=== PATIENT | male | born 1950 | race Caucasian/White ===

== ENCOUNTER → 2017-01-11 | Outpatient (CLI) | payer BC ==
[~2017-01-11] MED LIST: ACYC1CAP8; AGM875 PO; AMX500; SIMV40TA2
[2017-01-11 09:26] LABS: BASO % 0.5 %; BASO ABS # 0.03 K/uL (0-0.2); COMPLETE YES; EOS % 1.5 %; HEMATOCRIT 42.1 % (42-52); IG% 0.2 %; LYMPH % 26.1 %; MEAN CELL VOLUME 84.5 fL (80-100); MEAN CORPUSCULAR HEMOGLOBIN 29.7 pg (25-34); MEAN CORPUSCULAR HGB CONC 35.2 g/dl (32-36); MEAN PLATELET VOLUME 9.6 fL (7.4-10.4); MONO % 9.4 %; NEUT % 62.3 %; PLATELET COUNT 209 K/uL (130-400); RED BLOOD COUNT 4.98 M/uL (4.7-6.1); WHITE BLOOD COUNT 6.51 K/uL (4.8-10.8)
[2017-01-11 09:37] LABS: ALT/SGPT 42 U/L (12-78); AST/SGOT 29 U/L (15-37); BLOOD UREA NITROGEN 30 mg/dl (7-18); BUN/CREATININE RATIO 24.8 (10-20); CALCIUM 9.5 mg/dl (8.5-10.1); CARBON DIOXIDE 27 mmol/L (21-32); CHLORIDE 101 mmol/L (98-107); CHOLESTEROL 149 mg/dl (0-200); GLUCOSE 105 mg/dl (70-99); POTASSIUM 3.8 mmol/L (3.5-5.1); SODIUM 139 mmol/L (136-145); URIC ACID 7.4 mg/dl (2.6-7.2)
[2017-01-11 09:45] LABS: URINE APPEARANCE CLEAR (CLEAR); URINE BILIRUBIN NEG (NEG); URINE COLOR YELLOW; URINE EPITHELIAL CELL AUTO 0-5 /lpf (0-5); URINE NITRITE NEG (NEG); URINE PH 5.5 (4.5-7.5); URINE SPECIFIC GRAVITY 1.015 (1.000-1.030); UROBILINOGEN NEG (NEG)
[2017-01-11 09:47] LABS: CHOLESTEROL/HDL RATIO 3.4; HDL CHOLESTEROL 44 mg/dl; LDL CHOLESTEROL CALCULATED 76 mg/dl; MANUAL MICROSCOPIC REQUIRED? NO; REVIEW REQ? YES; TRIGLYCERIDES 144 mg/dl (0-150); VERY LOW DENSITY LIPOPROT CALC 29 mg/dl
[2017-01-11 09:48] LABS: ESTIMATED AVERAGE GLUCOSE 111 mg/dl; HA1C FLAG Normal (Normal)
--- NOTE | 2017-01-15 11:11 | CODING QUERY MEDICAL NECESSITY ---
SUPPORTING DIAGNOSIS NEEDED Dr. Grayson, A supporting diagnosis is required for the test/procedure performed on this patient in order for us to be reimbursed by the patient's insurance. Please provide a supporting diagnosis for the following test/procedure listed below next to the test name along with your signature. *If there is no additional diagnosis for this patient that would support the following test/procedure please document that below next to the test/procedure. Test(s)/Procedure(s) that require a supporting diagnosis: * [id number] GLYCATED HEMOGLOBIN DIAGNOSIS: * [id number] PSA DIAGNOSIS: DATE OF SERVICE: 01/11/17 Provider Signature: Date: Thank you Kenyon [facility] Once completed, please kindly fax back to [phone] For questions please call [phone]
== END | disposition home or self-care (01) ==
LOC: C.LAB1850 08:04
PROVIDERS: ATTEND Internal Medicine
DX: E78.00 Pure hypercholesterolemia, unspecified (principal); Z12.5 Encounter for screening for malignant neoplasm of prostate

== ENCOUNTER → 2017-07-08 | Outpatient (CLI) | payer BC ==
[2017-07-08 09:47] LABS: BASO % 0.4 %; BASO ABS # 0.03 K/uL (0-0.2); COMPLETE YES; EOS % 3.2 %; HEMATOCRIT 44.8 % (42-52); IG% 0.3 %; LYMPH % 27.1 %; LYMPH ABS # 1.84 K/uL (1.2-3.4); MEAN CORPUSCULAR HEMOGLOBIN 29.5 pg (25-34); MEAN CORPUSCULAR HGB CONC 33.9 g/dl (32-36); MONO % 7.9 %; NEUT % 61.1 %; PLATELET COUNT 252 K/uL (130-400); RED BLOOD COUNT 5.15 M/uL (4.7-6.1)
[2017-07-08 09:58] LABS: URINE APPEARANCE CLEAR (CLEAR); URINE BILIRUBIN NEG (NEG); URINE COLOR YELLOW; URINE EPITHELIAL CELL AUTO 0-5 /lpf (0-5); URINE NITRITE NEG (NEG); URINE PH 5.5 (4.5-7.5); URINE SPECIFIC GRAVITY 1.015 (1.000-1.030); UROBILINOGEN NEG (NEG)
[2017-07-08 10:02] LABS: MANUAL MICROSCOPIC REQUIRED? NO; REVIEW REQ? NO
[2017-07-08 10:14] LABS: ESTIMATED AVERAGE GLUCOSE 117 mg/dl; HA1C FLAG Normal (Normal)
[2017-07-08 10:15] LABS: ALT/SGPT 49 U/L (12-78); AST/SGOT 30 U/L (15-37); BLOOD UREA NITROGEN 28 mg/dl (7-18); BUN/CREATININE RATIO 23.7 (10-20); CALCIUM 9.3 mg/dl (8.5-10.1); CARBON DIOXIDE 32 mmol/L (21-32); CHLORIDE 103 mmol/L (98-107); GLUCOSE 95 mg/dl (70-99); POTASSIUM 3.7 mmol/L (3.5-5.1); SODIUM 140 mmol/L (136-145)
[2017-07-08 10:26] LABS: CHOLESTEROL 136 mg/dl (0-200); CHOLESTEROL/HDL RATIO 3.6; HDL CHOLESTEROL 38 mg/dl; LDL CHOLESTEROL CALCULATED 60 mg/dl; TRIGLYCERIDES 192 mg/dl (0-150); VERY LOW DENSITY LIPOPROT CALC 38 mg/dl
--- NOTE | 2017-07-18 11:15 | CODING QUERY MEDICAL NECESSITY ---
SUPPORTING DIAGNOSIS NEEDED A supporting diagnosis is required for the test/procedure performed on this patient in order for us to be reimbursed by the patient's insurance. Please provide a supporting diagnosis for the following test/procedure listed below next to the test name along with your signature. *If there is no additional diagnosis for this patient that would support the following test/procedure please document that below next to the test/procedure. Test(s)/Procedure(s) that require a supporting diagnosis: * HEMOGLOBIN A1C DIAGNOSIS: * PSA DIAGNOSIS: Provider Signature: Date: Thank you Aiyana Jones [facility] Once completed, please kindly fax back to [phone] For questions please call [phone]
== END | disposition home or self-care (01) ==
LOC: C.LAB1850 08:05
PROVIDERS: ATTEND Internal Medicine
DX: E78.00 Pure hypercholesterolemia, unspecified (principal)

== ENCOUNTER → 2018-02-21 | Outpatient (CLI) | payer BC ==
[~2018-02-21] MED LIST changes: +ACYC-57; -ACYC1CAP8
[2018-02-21 09:36] LABS: BASO % 0.3 %; BASO ABS # 0.02 K/uL (0-0.2); EOS % 2.1 %; EOS ABS # 0.13 K/uL (0-0.5); HEMATOCRIT 43.5 % (42-52); HEMOGLOBIN 15.5 g/dL (14.0-18.0); LYMPH % 24.6 %; LYMPH ABS # 1.53 K/uL (1.2-3.4); MEAN CELL VOLUME 84.3 fL (80-100); MEAN CORPUSCULAR HGB CONC 35.6 g/dl (32-36); MEAN PLATELET VOLUME 9.6 fL (7.4-10.4); MONO % 9.8 %; MONO ABS # 0.61 K/uL (0.11-0.59); NEUT % 63.2 %; NEUT ABS # 3.94 K/uL (1.4-6.5); PLATELET COUNT 207 K/uL (130-400); RED CELL DISTRIBUTION WIDTH CV 13.2 % (11.5-14.5); RED CELL DISTRIBUTION WIDTH SD 39.6 fL (36.4-46.3); WHITE BLOOD COUNT 6.23 K/uL (4.8-10.8)
[2018-02-21 09:47] LABS: HEMOGLOBIN A1C 5.7 % (4.5-5.6)
[2018-02-21 09:54] LABS: ALT/SGPT 54 U/L (12-78); AST/SGOT 36 U/L (15-37); BLOOD UREA NITROGEN 27 mg/dl (7-18); CALCIUM 9.7 mg/dl (8.5-10.1); CARBON DIOXIDE 33 mmol/L (21-32); CHOLESTEROL 164 mg/dl (0-200); CREATININE 1.28 mg/dl (0.60-1.40); GLUCOSE 108 mg/dl (70-99); POTASSIUM 3.5 mmol/L (3.5-5.1); SODIUM 139 mmol/L (136-145)
[2018-02-21 09:55] LABS: LDL CHOLESTEROL CALCULATED 76 mg/dl
== END | disposition home or self-care (01) ==
LOC: C.LAB1850 07:51
PROVIDERS: ATTEND Internal Medicine
DX: E78.00 Pure hypercholesterolemia, unspecified (principal)

== ENCOUNTER 2023-04-02 22:50 | Inpatient (IN) ==
[2023-04-02] MEDS ORDERED: OPTIRAY 320 500ml IV ONE (23:05)
--- NOTE | 2023-04-02 23:25 | Emergency Department Note ---
Impression & Plan Brain TIA ED Provider Note Provider: Blair Kirkland MD DATE OF SERVICE: 04/02/2023 CHIEF COMPLAINT: Speech issue and facial droop transient HISTORY OF PRESENT ILLNESS: Patient is a 73-year-old gentleman history of back surgery and GERD as well as hypertension presenting here today brought by his from home with a transient episode of slurred speech as well as left-sided facial droop and eye weakness that occurred between about 9:35 PM this evening till about 10 PM. Patient was evidently on the phone and started have slurred speech. The phone call or contact another friends and family who alerted the patient's went to check on him. He was evidently in a recliner talking and he states he is thinks he may have just fallen asleep some but was having significant left-sided facial droop at that time upon her arrival as well as difficulty opening his left eye and was having slurred speech. This lasted for about 20 to 25 minutes but has resolved by the time of arrival. Did stumble a bit getting out of the car to get any here however. Took an extra 81 mg aspirin prior to arrival but takes this daily. No history of CVA. History of heart issues in the family reported. Patient denies history of stroke. Denies other numbness or weakness in the extremities. Denies difficulty with speech at this time and the states he appears back to baseline. Did have bourbon or 2 after dinner but this is not atypical for him. PAST MEDICAL HISTORY: As noted above MEDICATIONS: Reviewed home medications FMH: Cardiac history SOCIAL HISTORY: PHYSICAL EXAM: GENERAL: alert and oriented in no acute distress on stretcher Head: normocephalic and atraumatic EYES: No injection, discharge or icterus. PERRL, EOMI. NECK: Trachea midline. Supple. ENT: Mucous membranes pink and moist. Pharynx without erythema or exudate. LUNGS: Airway patent. No retractions or tachypnea HEART: Regular rate and rhythm. No chest wall tenderness ABDOMEN: Soft and non-tender, without guarding or rebound. SKIN: Acyanotic, warm, dry, without rashes EXTREMITIES: Without swelling, tenderness or deformity NEUROLOGICAL: No focal deficits. No aphasia. No facial droop or slurred speech. Midline tongue. Good movement of the facial muscles at this time bilaterally and symmetric. No finger-nose ataxia normal strength and tone in the extremities. Sensation to gross touch normal. Ambulatory. EK bpm sinus rhythm with first-degree AV block. No PVC noted. Right bundle branch block left anterior fascicular block. No acute ST segment elevation with a QTc of 443. CONTINUOUS CARDIAC MONITORING: was ordered and showed a heart rate of 60s bpm in normal sinus rhythm occasional PVCs Patient's laboratory studies and imaging reviewed. Differential includes Infection, dehydration, metabolic abnormality, hypo/hyperglycemia, electrolyte disturbance, anemia, hypoxia, cardiac sources, intracerebral event, toxicologic, neurologic, as well as other pathologies. IMPRESSION/MEDICAL DECISION MAKING: Patient with some transient neurological symptoms with speech and left-sided facial droop now resolved. Do not see any neurological deficits at this point. Question if this could have represented TIA. Does not seem like seizure. Given his history of regular alcohol use do not feel that the transient symptoms that quickly improved seem consistent with an alcohol intoxication state. Discussed with him and his concerns for TIA. CT and CTAs ordered and completed. Basic blood work without anemia or leukocytosis. Doubt this represents Yousif's palsy given the resolution. No significant electrolyte abnormality or acute kidney injury noted on blood work. No signs of significant transaminitis. CT head per radiology without evidence of acute intracranial abnormality with some microvascular changes chronic. CTA of the head with focal stenosis at the A2 segment of the left anterior cerebral artery but no occlusion noted or other aneurysm per report. CTA of the neck without acute abnormality. Given a full dose aspirin here with findings of some stenosis although not severely distribution to explain his symptoms we will give a Plavix load at this time and defer further anticoagulation. Not indicative of any need for endovascular therapy or thrombolytics especially with resolution of his symptoms. Seems consistent with TIA. Discussed the patient and recommended further care here at the hospital. Hospitalist contacted. DIAGNOSIS: TIA DISPOSITION: Hospitalist will evaluate Patient was agreeable with this plan. Past Med/Surg History Medical History (Updated 04/03/23 @ 01:35 by Blair Kirkland M.D.) Anemia reports recent drop in hgb. (hgb 15 03/2019 --> hgb 12.6 09/2019) pcp monitoring. colonoscopy and egd pending Arthralgia of multiple sites BPH (benign prostatic hyperplasia) Carpal tunnel syndrome, left Cervical radiculopathy at C8 Chronic back pain Degenerative disc disease Erectile dysfunction GERD without esophagitis History of irregular heartbeat 15 YEARS AGO "I SKIPPED BEATS" - NO CURRENT ISSUES - DOES NOT FOLLOW W/ CARDIO [place] (hard of hearing) Lumbar back pain Neck pain with history of cervical spinal surgery NSAID induced gastritis 10/2019 Osteoarthritis RBBB (right bundle branch block with left anterior fascicular block) Spinal stenosis Surgical History History of carpal tunnel surgery of left wrist History of cervical spinal surgery History of colonoscopy History of shoulder surgery History of tonsillectomy and adenoidectomy Family History Father Multiple myeloma Myocardial infarction Grandmother (Paternal) Family history of diabetes mellitus Brother Family hx colonic polyps Family/Other Colorectal cancer Ovarian cancer Mother Myocardial infarction Other No family history of adverse response to anesthesia Denies family history of Prostate cancer Breast cancer Social History (Updated 12/31/22 @ 13:38 by TEGAN Plunkett) Smoking Status: Never smoker Tobacco Type: Cigarettes Cigarettes Per Day: QUIT 40 YEARS AGO; Second Hand Exposure: Yes; Do You Dip or Chew Tobacco: No; Hx Alcohol Use: Yes (Several times a month ) Alcohol type: hard liquor Hx Substance Use: No Preferred Language: Azeri Communication Ability: Effective Goring Cutter Required: No Beliefs That Will Affect Care: None marital status: Current Living Situation: Spouse current occupational status: employed current occupation: [employer] Feels Safe at Home: Yes Childhood Exposure to Second-Hand Smoke: Yes Dental Care, Regularly: Yes Physical Activity Frequency: 3-4 Times per Week Seatbelt Use: always Sunscreen Use: Yes Assistive Devices: None Allergies Allergies Allergy/AdvReac Type Severity Reaction Status Date / Time oxycodone Allergy Intermediate Rash Verified 04/02/23 23:25 tramadol Allergy Intermediate swelling Verified 04/02/23 23:25 terbinafine AdvReac Intermediate Diarrhea Verified 04/02/23 23:25 Home Meds Home Medications Medication Instructions Recorded Confirmed ascorbic acid (vitamin C) 1,000 mg 3,000 mg PO QPM 10/24/18 04/02/23 tablet (Vitamin C) [id number] 250 1 tab PO [id number] 04/02/23 04/02/23 mg-250 mg-65 mg tablet (Excedrin Migraine) pantoprazole 40 mg tablet,delayed 40 mg PO DAILY 04/02/23 04/02/23 release Previous Rx's Medication Instructions Recorded acyclovir 400 mg tablet 400 mg PO BID #180 tabs 04/25/21 amlodipine 5 mg-olmesartan 20 mg 0.5 tab PO DAILY #45 tabs 09/27/22 tablet rosuvastatin 40 mg tablet 40 mg PO DAILY #90 tabs 12/10/22 amitriptyline 50 mg tablet 25 mg PO QPM #45 tabs 12/31/22 Results & Data (ED) Vital Signs Vital Signs - 24 hr 04/02/23 22:52 04/02/23 23:15 04/03/23 01:04 Temperature 36.6 C Temperature Source Temporal Artery Scan Pulse Rate 68 65 Pulse Rate [Right Finger] 70 Pulse Rhythm Regular Pulse Rhythm [Right Finger] Regular Pulse Strength Normal Pulse Strength [Right Finger] Normal Respiratory Rate 17 18 Respiratory Effort / Characteristics Non-Labored Spontaneous Non-Labored Spontaneous Respiratory Depth Normal Normal Respiratory Pattern Regular Regular Blood Pressure 127/43 L Blood Pressure [Right Arm] 135/65 Blood Pressure Mean 71 Blood Pressure Mean [Right Arm] 88 Blood Pressure Position Sitting Blood Pressure Position [Right Arm] Lying Pulse Oximetry 97 93 Oxygen Delivery Method Room Air Room Air Sepsis Recent Fever Within 48 Hours No Sepsis New/Unexplained Change in Mental Status N/A Sepsis Action Taken by Nursing No Action Required Laboratory Data 04/02/23 23:12 04/02/23 23:12 Lab Results 04/02/23 04/02/23 04/02/23 Range/Units 23:12 23:12 23:12 WBC 5.54 (4.8-10.8) K/ul RBC 4.55 L (4.70-6.10) M/uL Hgb 14.5 (14.0-18.0) g/dl POC Hgb (14.0-18.0) g/dl Hct 40.2 L (42.0-52.0) % POC Hct (42-52) % MCV 88.4 (80.0-100.0) fL MCH 31.9 (25.0-34.0) pg MCHC 36.1 H (32.0-36.0) g/dL RDW Std Deviation 40.2 (36.4-46.3) fL RDW Coeff of Judy 12.5 (11.5-14.5) % Plt Count 193 (130-400) K/uL MPV 10.4 (9.4-12.4) fL Immature Gran % (Auto) 0.2 % Neut % (Auto) 53.4 % Lymph % (Auto) 33.0 % Sargent % (Auto) 9.6 % Eos % (Auto) 3.1 % Baso % (Auto) 0.7 % Neut # (Auto) 2.96 (1.40-6.50) K/uL Lymph # (Auto) 1.83 (1.2-3.4) K/uL Sargent # (Auto) 0.53 (0.11-0.59) K/uL Eos # (Auto) 0.17 (0-0.50) K/uL Baso # (Auto) 0.04 (0-0.2) K/uL Immature Gran # (Auto) 0.01 (0.01-0.20) K/uL PT 10.1 (9.0-12.0) Seconds INR 0.9 (0.9-1.1) APTT 30.7 (21.0-31.0) Seconds PTT Ratio 1.1 POC Sodium (135-144) mmol/L Sodium 139 (136-145) mmol/L POC Potassium (3.3-5.0) mmol/L Potassium 3.9 (3.5-5.1) mmol/L POC Chloride (101-112) mmol/L Chloride 104 (98-107) mmol/L Carbon Dioxide 28 (21-32) mmol/L POC Total CO2 (24-31) mmol/L Anion Gap 7 (3-11) POC Anion Gap (16-25) mmol/L POC BUN (7-18) mg/dl BUN 17 (6-23) mg/dl Creatinine 1.09 (0.6-1.4) mg/dl POC Creatinine (0.6-1.3) mg/dl Est Cr Clr Drug Dosing 69.3 ml/min Est GFR ( Amer) 77.6 ml/min Est GFR (Non-Af Amer) 67.0 ml/min BUN/Creatinine Ratio 15.6 (10-20) Glucose 100 H (70-99(Fasting)) mg/dl POC Glucose (other) (70-99) mg/dl Calcium 9.5 (8.6-10.3) mg/dl POC Ioniz Calcium Alla (1.12-1.32) mmol/l Magnesium 2.1 (1.7-2.4) mg/dl Total Bilirubin 0.3 (0.2-1.0) mg/dl AST 23 (13-39) U/L ALT 21 (7-52) U/L Alkaline Phosphatase 58 (34-104) U/L Troponin I High Sens 8.4 (0-20) pg/ml Total Protein 7.2 (6.0-8.3) gm/dl Albumin 4.5 (3.4-5.0) gm/dl Globulin 2.7 (2.5-4.0) gm/dl Albumin/Globulin Ratio 1.7 (0.9-2) 04/02/23 Range/Units 23:20 WBC (4.8-10.8) K/ul RBC (4.70-6.10) M/uL Hgb (14.0-18.0) g/dl POC Hgb 13.6 L (14.0-18.0) g/dl Hct (42.0-52.0) % POC Hct 40 L (42-52) % MCV (80.0-100.0) fL MCH (25.0-34.0) pg MCHC (32.0-36.0) g/dL RDW Std Deviation (36.4-46.3) fL RDW Coeff of Judy (11.5-14.5) % Plt Count (130-400) K/uL MPV (9.4-12.4) fL Immature Gran % (Auto) % Neut % (Auto) % Lymph % (Auto) % Sargent % (Auto) % Eos % (Auto) % Baso % (Auto) % Neut # (Auto) (1.40-6.50) K/uL Lymph # (Auto) (1.2-3.4) K/uL Sargent # (Auto) (0.11-0.59) K/uL Eos # (Auto) (0-0.50) K/uL Baso # (Auto) (0-0.2) K/uL Immature Gran # (Auto) (0.01-0.20) K/uL PT (9.0-12.0) Seconds INR (0.9-1.1) APTT (21.0-31.0) Seconds PTT Ratio POC Sodium 142 (135-144) mmol/L Sodium (136-145) mmol/L POC Potassium 3.9 (3.3-5.0) mmol/L Potassium (3.5-5.1) mmol/L POC Chloride 102 (101-112) mmol/L Chloride (98-107) mmol/L Carbon Dioxide (21-32) mmol/L POC Total CO2 26 (24-31) mmol/L Anion Gap (3-11) POC Anion Gap 19.0 (16-25) mmol/L POC BUN 18 (7-18) mg/dl BUN (6-23) mg/dl Creatinine (0.6-1.4) mg/dl POC Creatinine 1.2 (0.6-1.3) mg/dl Est Cr Clr Drug Dosing ml/min Est GFR ( Amer) ml/min Est GFR (Non-Af Amer) ml/min BUN/Creatinine Ratio (10-20) Glucose (70-99(Fasting)) mg/dl POC Glucose (other) 105 H (70-99) mg/dl Calcium (8.6-10.3) mg/dl POC Ioniz Calcium Alla 1.23 (1.12-1.32) mmol/l Magnesium (1.7-2.4) mg/dl Total Bilirubin (0.2-1.0) mg/dl AST (13-39) U/L ALT (7-52) U/L Alkaline Phosphatase (34-104) U/L Troponin I High Sens (0-20) pg/ml Total Protein (6.0-8.3) gm/dl Albumin (3.4-5.0) gm/dl Globulin (2.5-4.0) gm/dl Albumin/Globulin Ratio (0.9-2) Administered Medications Discontinued Medications Ioversol (Optiray 320 500ml) 125 ml IV ONCE ONE Stop: 04/02/23 23:06 Last Admin: 04/02/23 23:05 Dose: 112 ml Documented By: ONELIA Imaging Data Radiologist's Impression: Head CT 04/02/23 22:58 Exam(s): CT HEAD Without Contrast EXAM: CT Head Without Intravenous Contrast CLINICAL HISTORY: Reason for exam: neuro deficit, acute stroke suspected. TECHNIQUE: Axial computed tomography images of the head/brain without intravenous contrast. CTDI is 36.9 mGy and DLP is 624.41 mGy-cm. Automated exposure control was utilized for the study. A dose lowering technique was utilized adhering to the principles of ALARA. COMPARISON: None. FINDINGS: Brain: Global parenchymal volume loss with chronic microvascular ischemic changes. No hemorrhage. Ventricles: No ventriculomegaly. Bones/joints: Unremarkable. No acute fracture. Soft tissues: Unremarkable. Sinuses: Unremarkable as visualized. Mastoid air cells: Unremarkable as visualized. No mastoid effusion. IMPRESSION: 1. No intracranial hemorrhage or evidence of large territorial infarction. 2. Global parenchymal volume loss with chronic microvascular ischemic changes. Electronically signed by: Rudi Nieves MD 04/03/23 00:47 AM Head CTA 04/02/23 22:58 Exam(s): CTA HEAD With Contrast IV Amt: 112 ML OPTIRAY 320 EXAM: CT Angiography Head With Intravenous Contrast CLINICAL HISTORY: Reason for exam: neuro deficit, acute stroke suspected. TECHNIQUE: Axial computed tomographic angiography images of the head with intravenous contrast. CTDI is 14.34 mGy and DLP is 603.04 mGy-cm. Automated exposure control was utilized for the study. A dose lowering technique was utilized adhering to the principles of ALARA. MIP reconstructed images were created and reviewed. CONTRAST: Patient received 112 ML OPTIRAY 320 of IV contrast COMPARISON: None. FINDINGS: Right internal carotid artery: No acute findings. Intracranial segment is patent with no significant stenosis. No aneurysm. Right anterior cerebral artery: Unremarkable. No occlusion or significant stenosis. No aneurysm. Right middle cerebral artery: Unremarkable. No occlusion or significant stenosis. No aneurysm. Right posterior cerebral artery: Mild stenosis of the P2 segment of the right posterior cerebral artery. No aneurysm. Right vertebral artery: Unremarkable as visualized. Left internal carotid artery: No acute findings. Intracranial segment is patent with no significant stenosis. No aneurysm. Left anterior cerebral artery: Focal severe stenosis of the A2 segment of the left anterior cerebral artery. No aneurysm. Left middle cerebral artery: Unremarkable. No occlusion or significant stenosis. No aneurysm. Left posterior cerebral artery: Unremarkable. No occlusion or significant stenosis. No aneurysm. Left vertebral artery: Diminutive V4 segment of the left vertebral artery which predominantly terminates as the left posterior inferior cerebellar artery. Basilar artery: Unremarkable. No occlusion or significant stenosis. No aneurysm. IMPRESSION: 1. No large vessel occlusion. 2. Focal severe stenosis of the A2 segment of the left anterior cerebral artery. Electronically signed by: Rudi Nieves MD 04/03/23 00:51 AM Neck CTA 04/02/23 22:58 Exam(s): CTA NECK With Contrast IV Amt: 112 ML OPTIRAY 320 EXAM: CT Angiography Neck With Intravenous Contrast CLINICAL HISTORY: Reason for exam: neuro deficit, acute stroke suspected. TECHNIQUE: Routine carotid CT angiography protocol was performed with intravenous contrast. NASCET criteria using the distal ICAs for comparison were used for evaluation of stenoses. CTDI is 14.34 mGy and DLP is 603.04 mGy-cm. Automated exposure control was utilized for the study. A dose lowering technique was utilized adhering to the principles of ALARA. MIP reconstructed images were created and reviewed. CONTRAST: Patient received 112 ML OPTIRAY 320 of IV contrast COMPARISON: None. FINDINGS: VASCULATURE: Right common carotid artery: Unremarkable. No occlusion or significant stenosis. No dissection. Right internal carotid artery: Unremarkable. Extracranial segment is patent with no occlusion or significant stenosis. No dissection. Right external carotid artery: Unremarkable. No occlusion. Right vertebral artery: Right vertebral artery is dominant. No occlusion or significant stenosis. No dissection. Left common carotid artery: Unremarkable. No occlusion or significant stenosis. No dissection. Left internal carotid artery: Unremarkable. Extracranial segment is patent with no occlusion or significant stenosis. No dissection. Left external carotid artery: Unremarkable. No occlusion. Left vertebral artery: Unremarkable. No occlusion or significant stenosis. No dissection. NECK: Bones/joints: Anterior cervical discectomy and fusion at C4-C6. Degenerative changes in the cervical spine yields varying degrees of foraminal narrowing and spinal canal stenosis. Soft tissues: Unremarkable. Lung apices: Clear. CAROTID STENOSIS REFERENCE USING NASCET CRITERIA: % ICA stenosis = (1 - narrowest ICA diameter/diameter of distal cervical ICA) x 100. Mild - <50% stenosis. Moderate - 50-69% stenosis. Severe - 70-94% stenosis. Near occlusion - 95-99% stenosis. Occluded - 100% stenosis. IMPRESSION: No dissection, pseudoaneurysm, or hemodynamically significant stenosis of the carotid or vertebral arteries. Electronically signed by: Rudi Nieves MD 04/03/23 00:57 AM Discharge Plan Visit Data Chief Complaint: Illness Stated Complaint: SLURRING OF SPEECH,TIRED/LETHARGIC ED Provider: Blair Kirkland Discharge Problem: Brain TIA Patient Disposition: Being Evaluated by Hospitalist Forms Stand Alone Forms: [facility] Prescriptions Prescriptions: No Action acyclovir 400 mg tablet 400 mg PO BID Qty: 180 3RF amlodipine-olmesartan 5-20 mg tablet 0.5 tab PO DAILY Qty: 45 3RF rosuvastatin 40 mg tablet 40 mg PO DAILY Qty: 90 3RF Hold Instructions: while on paxlovid amitriptyline 50 mg tablet 25 mg PO QPM Qty: 45 3RF ascorbic acid (vitamin C) [Vitamin C] 1,000 mg Tablet 3,000 mg PO QPM Excedrin Migraine 250-250-65 mg Tablet 1 tab PO 6XWK pantoprazole 40 mg tablet,delayed release (DR/EC) 40 mg PO DAILY Rx Instructions: TAKE 1 TABLET BY MOUTH DAILY Referrals Referrals: Yanet Campbell MD [Primary Care Provider] -
[2023-04-02 23:32] LABS: iSTAT Creatinine 1.2 mg/dl (0.6-1.3); iSTAT Hemoglobin 13.6 g/dl (14.0-18.0); iSTAT Ionized Calcium 1.23 mmol/l (1.12-1.32); iSTAT Potassium 3.9 mmol/L (3.3-5.0)
[2023-04-02 23:38] LABS: Basophils # (auto) 0.04 K/uL (0-0.2); Basophils % (auto) 0.7 %; Eosinophils # (auto) 0.17 K/uL (0-0.50); Eosinophils % (auto) 3.1 %; Hematocrit (blood only) 40.2 % (42.0-52.0); Hemoglobin 14.5 g/dl (14.0-18.0); Immature Granulocytes # (auto) 0.01 K/uL (0.01-0.20); Immature Granulocytes % (auto) 0.2 %; Lymphocytes # (auto) 1.83 K/uL (1.2-3.4); Mean Corpuscular Hemoglobin 31.9 pg (25.0-34.0); Mean Corpuscular Hgb Conc 36.1 g/dL (32.0-36.0); Mean Corpuscular Volume 88.4 fL (80.0-100.0); Mean Platelet Volume 10.4 fL (9.4-12.4); Monocytes # (auto) 0.53 K/uL (0.11-0.59); Monocytes % (auto) 9.6 %; Neutrophils # (auto) 2.96 K/uL (1.40-6.50); Neutrophils % (auto) 53.4 %; Platelet Count 193 K/uL (130-400); RDW Coefficient of Variation 12.5 % (11.5-14.5); RDW Standard Deviation 40.2 fL (36.4-46.3); Red Blood Count 4.55 M/uL (4.70-6.10); White Blood Count 5.54 K/ul (4.8-10.8)
[2023-04-02 23:58] LABS: Albumin Globulin Ratio 1.7 (0.9-2); Albumin Level 4.5 gm/dl (3.4-5.0); BUN Creatinine Ratio 15.6 (10-20); Bilirubin,Total 0.3 mg/dl (0.2-1.0); Calcium 9.5 mg/dl (8.6-10.3); Creatinine Clr Calc Pharmacy 69.3 ml/min; Est GFR (African American) 77.6 ml/min; Globulin 2.7 gm/dl (2.5-4.0); Potassium 3.9 mmol/L (3.5-5.1); Total Protein 7.2 gm/dl (6.0-8.3); Troponin I High Sensitivity 8.4 pg/ml (0-20)
[2023-04-02 23:59] LABS: Magnesium 2.1 mg/dl (1.7-2.4)
[2023-04-03 00:16] LABS: INR 0.9 (0.9-1.1); Partial Thromboplastin Ratio 1.1; Partial Thromboplastin Time 30.7 Seconds (21.0-31.0); Prothrombin Time 10.1 Seconds (9.0-12.0)
--- NOTE | 2023-04-03 00:48 | CT Scan Report ---
Exam(s): CT HEAD Without Contrast EXAM: CT Head Without Intravenous Contrast CLINICAL HISTORY: Reason for exam: neuro deficit, acute stroke suspected. TECHNIQUE: Axial computed tomography images of the head/brain without intravenous contrast. CTDI is 36.9 mGy and DLP is 624.41 mGy-cm. Automated exposure control was utilized for the study. A dose lowering technique was utilized adhering to the principles of ALARA. COMPARISON: None. FINDINGS: Brain: Global parenchymal volume loss with chronic microvascular ischemic changes. No hemorrhage. Ventricles: No ventriculomegaly. Bones/joints: Unremarkable. No acute fracture. Soft tissues: Unremarkable. Sinuses: Unremarkable as visualized. Mastoid air cells: Unremarkable as visualized. No mastoid effusion. IMPRESSION: 1. No intracranial hemorrhage or evidence of large territorial infarction. 2. Global parenchymal volume loss with chronic microvascular ischemic changes. Electronically signed by: Rudi Nieves MD 04/03/23 00:47 AM
--- NOTE | 2023-04-03 00:52 | CT Scan Report ---
Exam(s): CTA HEAD With Contrast IV Amt: 112 ML OPTIRAY 320 EXAM: CT Angiography Head With Intravenous Contrast CLINICAL HISTORY: Reason for exam: neuro deficit, acute stroke suspected. TECHNIQUE: Axial computed tomographic angiography images of the head with intravenous contrast. CTDI is 14.34 mGy and DLP is 603.04 mGy-cm. Automated exposure control was utilized for the study. A dose lowering technique was utilized adhering to the principles of ALARA. MIP reconstructed images were created and reviewed. CONTRAST: Patient received 112 ML OPTIRAY 320 of IV contrast COMPARISON: None. FINDINGS: Right internal carotid artery: No acute findings. Intracranial segment is patent with no significant stenosis. No aneurysm. Right anterior cerebral artery: Unremarkable. No occlusion or significant stenosis. No aneurysm. Right middle cerebral artery: Unremarkable. No occlusion or significant stenosis. No aneurysm. Right posterior cerebral artery: Mild stenosis of the P2 segment of the right posterior cerebral artery. No aneurysm. Right vertebral artery: Unremarkable as visualized. Left internal carotid artery: No acute findings. Intracranial segment is patent with no significant stenosis. No aneurysm. Left anterior cerebral artery: Focal severe stenosis of the A2 segment of the left anterior cerebral artery. No aneurysm. Left middle cerebral artery: Unremarkable. No occlusion or significant stenosis. No aneurysm. Left posterior cerebral artery: Unremarkable. No occlusion or significant stenosis. No aneurysm. Left vertebral artery: Diminutive V4 segment of the left vertebral artery which predominantly terminates as the left posterior inferior cerebellar artery. Basilar artery: Unremarkable. No occlusion or significant stenosis. No aneurysm. IMPRESSION: 1. No large vessel occlusion. 2. Focal severe stenosis of the A2 segment of the left anterior cerebral artery. Electronically signed by: Rudi Nieves MD 04/03/23 00:51 AM
--- NOTE | 2023-04-03 00:58 | CT Scan Report ---
Exam(s): CTA NECK With Contrast IV Amt: 112 ML OPTIRAY 320 EXAM: CT Angiography Neck With Intravenous Contrast CLINICAL HISTORY: Reason for exam: neuro deficit, acute stroke suspected. TECHNIQUE: Routine carotid CT angiography protocol was performed with intravenous contrast. NASCET criteria using the distal ICAs for comparison were used for evaluation of stenoses. CTDI is 14.34 mGy and DLP is 603.04 mGy-cm. Automated exposure control was utilized for the study. A dose lowering technique was utilized adhering to the principles of ALARA. MIP reconstructed images were created and reviewed. CONTRAST: Patient received 112 ML OPTIRAY 320 of IV contrast COMPARISON: None. FINDINGS: VASCULATURE: Right common carotid artery: Unremarkable. No occlusion or significant stenosis. No dissection. Right internal carotid artery: Unremarkable. Extracranial segment is patent with no occlusion or significant stenosis. No dissection. Right external carotid artery: Unremarkable. No occlusion. Right vertebral artery: Right vertebral artery is dominant. No occlusion or significant stenosis. No dissection. Left common carotid artery: Unremarkable. No occlusion or significant stenosis. No dissection. Left internal carotid artery: Unremarkable. Extracranial segment is patent with no occlusion or significant stenosis. No dissection. Left external carotid artery: Unremarkable. No occlusion. Left vertebral artery: Unremarkable. No occlusion or significant stenosis. No dissection. NECK: Bones/joints: Anterior cervical discectomy and fusion at C4-C6. Degenerative changes in the cervical spine yields varying degrees of foraminal narrowing and spinal canal stenosis. Soft tissues: Unremarkable. Lung apices: Clear. CAROTID STENOSIS REFERENCE USING NASCET CRITERIA: % ICA stenosis = (1 - narrowest ICA diameter/diameter of distal cervical ICA) x 100. Mild - <50% stenosis. Moderate - 50-69% stenosis. Severe - 70-94% stenosis. Near occlusion - 95-99% stenosis. Occluded - 100% stenosis. IMPRESSION: No dissection, pseudoaneurysm, or hemodynamically significant stenosis of the carotid or vertebral arteries. Electronically signed by: Rudi Nieves MD 04/03/23 00:57 AM
[2023-04-03] MEDS ORDERED: ASPIRIN CHEW 324 MG PO STA (01:07)
[2023-04-03] MEDS ORDERED: CLOPIDOGREL BISULFATE 300 MG TAB PO STA (01:07)
--- NOTE | 2023-04-03 01:47 | History & Physical Report ---
Date of Service April 03, 2023 Assessment & Plan (1) Brain TIA: (2) GERD without esophagitis: (3) BPH (benign prostatic hyperplasia): (4) Dyslipidemia: (5) Hypertension: (6) Chronic back pain: Plan Brain TIA- Symptoms consisted of slurred speech, and left facial droop, both of which resolved by the time of arrival to the ED CT head showed chronic small vessel disease CTA head showed focal severe stenosis of the A2 segment of the left anterior cerebral artery CTA neck was negative Patient was given aspirin 324 mg and clopidogrel 300 mg in the ED Continue aspirin 81 mg daily and clopidogrel 75 mg daily Ischemic stroke without tPA protocol order set MRI brain without contrast ordered Echocardiogram ordered Permissive hypertension, holding amlodipine-telmisartan Hyperlipidemia- Continue rosuvastatin Check a fasting lipid panel GERD- Continue pantoprazole 40 mg daily Chronic neuropathic pain evolving lumbar spine greater than cervical spine- Hold amitriptyline for now Prophylaxis- Continue acyclovir History of Present Illness Chief Complaint: The patient presents to the emergency department with complaint of resolved dysarthria and left facial droop, with slurred speech initially being noted by a friend on the phone, and the left facial droop being noticed by his who was notified to check on him. Primary Care Provider: Yanet Campbell MD The patient is a 73-year-old male with a past medical history including GERD without esophagitis, BPH, dyslipidemia, cervical disc surgery about 20 years ago, lumbar spine surgery about 3 years ago, hypertension, and arthralgia of multiple sites. The patient was on the phone with a friend, who noted his speech was slurred around 930 this evening. The friend called his brother, and his brother then talked to the patient's , who went in to check on the patient and noted that the patient patient left facial droop and difficulty with speech. The patient was initially resistant to come to the emergency department, however was ultimately convinced when EMS arrived. Upon arrival to emergency department, patient symptoms had already resolved. CT scan of head showed chronic small vessel disease, CTA of neck was negative, CTA of head showed a focal severe stenosis of the A2 division of the left anterior cerebral artery Patient was given aspirin 324 mg, and clopidogrel 300 mg, and was referred for evaluation for admission Allergies Allergy/AdvReac Type Severity Reaction Status Date / Time oxycodone Allergy Intermediate Rash Verified 04/02/23 23:25 tramadol Allergy Intermediate swelling Verified 04/02/23 23:25 terbinafine AdvReac Intermediate Diarrhea Verified 04/02/23 23:25 Home Medications Medication Instructions Recorded Confirmed Type ascorbic acid (vitamin C) 1,000 mg 3,000 mg PO QPM 10/24/18 04/02/23 History tablet (Vitamin C) acyclovir 400 mg tablet 400 mg PO BID #180 tabs 04/25/21 04/02/23 Rx amlodipine 5 mg-olmesartan 20 mg 0.5 tab PO DAILY #45 tabs 09/27/22 04/02/23 Rx tablet rosuvastatin 40 mg tablet 40 mg PO DAILY #90 tabs 12/10/22 04/02/23 Rx amitriptyline 50 mg tablet 25 mg PO QPM #45 tabs 12/31/22 04/02/23 Rx hkotbak-wguktvvmoahpf-elxctnot 250 1 tab PO 6XWK 04/02/23 04/02/23 History mg-250 mg-65 mg tablet (Excedrin Migraine) pantoprazole 40 mg tablet,delayed 40 mg PO DAILY 04/02/23 04/02/23 History release Past Med/Surg History Medical History (Updated 04/03/23 @ 01:35 by Blair Kirkland M.D.) Anemia reports recent drop in hgb. (hgb 15 03/2019 --> hgb 12.6 09/2019) pcp monitoring. colonoscopy and egd pending Arthralgia of multiple sites BPH (benign prostatic hyperplasia) Carpal tunnel syndrome, left Cervical radiculopathy at C8 Chronic back pain Degenerative disc disease Erectile dysfunction GERD without esophagitis History of irregular heartbeat 15 YEARS AGO "I SKIPPED BEATS" - NO CURRENT ISSUES - DOES NOT FOLLOW W/ [facility] (hard of hearing) Lumbar back pain Neck pain with history of cervical spinal surgery NSAID induced gastritis 10/2019 Osteoarthritis RBBB (right bundle branch block with left anterior fascicular block) Spinal stenosis Surgical History History of carpal tunnel surgery of left wrist History of cervical spinal surgery History of colonoscopy History of shoulder surgery History of tonsillectomy and adenoidectomy Family History Father Multiple myeloma Myocardial infarction Grandmother (Paternal) Family history of diabetes mellitus Brother Family hx colonic polyps Family/Other Colorectal cancer Ovarian cancer Mother Myocardial infarction Other No family history of adverse response to anesthesia Denies family history of Prostate cancer Breast cancer Social History (Updated 12/31/22 @ 13:38 by TEGAN Plunkett) Smoking Status: Never smoker Tobacco Type: Cigarettes Cigarettes Per Day: QUIT 40 YEARS AGO; Second Hand Exposure: Yes; Do You Dip or Chew Tobacco: No; Hx Alcohol Use: No (Several times a month ) Hx Substance Use: No Preferred Language: Swedish Communication Ability: Effective 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 Beliefs That Will Affect Care: None marital status: Current Living Situation: Spouse current occupational status: employed current occupation: [employer] Other Information That Helps Us Care for You: No Feels Safe at Home: Yes Safety Concerns: Feels Safe At This Time Childhood Exposure to Second-Hand Smoke: Yes Dental Care, Regularly: Yes Physical Activity Frequency: 3-4 Times per Week Seatbelt Use: always Sunscreen Use: Yes Assistive Devices: None and Denture - Upper Review of Systems Review of Systems: The patient denies chest pain, palpitations, shortness of breath, dyspnea on exertion, cough, lower extremity swelling, sore throat, fevers, chills, sweats, weight change, fatigue, nausea, vomiting, diarrhea , constipation, abdominal pain, pelvic pain, blood in urine or stool, dysuria, urinary frequency or urgency, lightheadedness, dizziness, headache, memory loss, loss of consciousness, rash, abnormal bruising or bleeding, imbalance, focal or generalized weakness, numbness or tingling in arms or legs, generalized arthralgias or myalgias, back or neck pain, or night sweats. The review of systems is otherwise negative other than for that already noted above, and at least 10 systems have been reviewed. Physical Exam Physical Exam: The patient is awake, alert and oriented 3, well developed and well nourished, normocephalic and atraumatic, lying in bed and in no acute distress. HEENT--PERRL, EOMI, mucous membranes and oropharynx normal. Neck--supple. No JVD. No bruits. Thyroid normal, trachea midline, no adenopathy. Heart--normal S1 and S2. No murmurs, rubs or gallops. Lungs--clear bilaterally, no respiratory distress, no accessory muscle use. Abdomen--normal bowel sounds and soft. Nontender. Nondistended, no hernias or masses, no organomegaly. Extremities--no cyanosis or clubbing. No edema. There are good distal pulses b/l. Dermatologic--normal skin turgor, normal color, no abnormal lymph nodes, no rash. Neurologic--cranial nerves II through XII grossly intact. Rheumatologic--normal range of motion. Psychiatric--normal affect. Results & Data Results & Data Vital Signs (Past 12 Hours) Vital Signs Temp Pulse Pulse Resp BP BP Pulse Ox 04/03/23 01:04 70 18 135/65 93 04/02/23 23:15 65 04/02/23 22:52 36.6 C 68 17 127/43 L 97 O2 Del Method 04/03/23 01:04 Room Air 04/02/23 23:15 04/02/23 22:52 Room Air Laboratory Results Laboratory Results WBC 5.20 K/ul (4.8-10.8) 04/03/23 03:58 RBC 4.29 M/uL (4.70-6.10) L 04/03/23 03:58 Hgb 13.2 g/dl (14.0-18.0) L 04/03/23 03:58 POC Hgb 13.6 g/dl (14.0-18.0) L 04/02/23 23:20 Hct 38.0 % (42.0-52.0) L 04/03/23 03:58 POC Hct 40 % (42-52) L 04/02/23 23:20 MCV 88.6 fL (80.0-100.0) 04/03/23 03:58 MCH 30.8 pg (25.0-34.0) 04/03/23 03:58 MCHC 34.7 g/dL (32.0-36.0) 04/03/23 03:58 RDW Std Deviation 40.8 fL (36.4-46.3) 04/03/23 03:58 RDW Coeff of Judy 12.6 % (11.5-14.5) 04/03/23 03:58 Plt Count 173 K/uL (130-400) 04/03/23 03:58 MPV 10.2 fL (9.4-12.4) 04/03/23 03:58 Immature Gran % (Auto) 0.2 % 04/03/23 03:58 Neut % (Auto) 49.1 % 04/03/23 03:58 Lymph % (Auto) 36.2 % 04/03/23 03:58 Armstrong % (Auto) 10.6 % 04/03/23 03:58 Eos % (Auto) 2.9 % 04/03/23 03:58 Baso % (Auto) 1.0 % 04/03/23 03:58 Neut # (Auto) 2.56 K/uL (1.40-6.50) 04/03/23 03:58 Lymph # (Auto) 1.88 K/uL (1.2-3.4) 04/03/23 03:58 Armstrong # (Auto) 0.55 K/uL (0.11-0.59) 04/03/23 03:58 Eos # (Auto) 0.15 K/uL (0-0.50) 04/03/23 03:58 Baso # (Auto) 0.05 K/uL (0-0.2) 04/03/23 03:58 Immature Gran # (Auto) 0.01 K/uL (0.01-0.20) 04/03/23 03:58 PT 10.1 Seconds (9.0-12.0) 04/02/23 23:12 INR 0.9 (0.9-1.1) 04/02/23 23:12 APTT 30.7 Seconds (21.0-31.0) 04/02/23 23:12 PTT Ratio 1.1 04/02/23 23:12 POC Sodium 142 mmol/L (135-144) 04/02/23 23:20 Sodium 139 mmol/L (136-145) 04/02/23 23:12 POC Potassium 3.9 mmol/L (3.3-5.0) 04/02/23 23:20 Potassium 3.9 mmol/L (3.5-5.1) 04/02/23 23:12 POC Chloride 102 mmol/L (101-112) 04/02/23 23:20 Chloride 104 mmol/L (98-107) 04/02/23 23:12 Carbon Dioxide 28 mmol/L (21-32) 04/02/23 23:12 POC Total CO2 26 mmol/L (24-31) 04/02/23 23:20 Anion Gap 7 (3-11) 04/02/23 23:12 POC Anion Gap 19.0 mmol/L (16-25) 04/02/23 23:20 POC BUN 18 mg/dl (7-18) 04/02/23 23:20 BUN 17 mg/dl (6-23) 04/02/23 23:12 Creatinine 1.09 mg/dl (0.6-1.4) 04/02/23 23:12 POC Creatinine 1.2 mg/dl (0.6-1.3) 04/02/23 23:20 Est Cr Clr Drug Dosing 69.3 ml/min 04/02/23 23:12 Est GFR ( Amer) 77.6 ml/min 04/02/23 23:12 Est GFR (Non-Af Amer) 67.0 ml/min 04/02/23 23:12 BUN/Creatinine Ratio 15.6 (10-20) 04/02/23 23:12 Glucose 100 mg/dl (70-99(Fasting)) H 04/02/23 23:12 POC Glucose 160 mg/dl (70-99) H 04/03/23 03:36 POC Glucose (other) 105 mg/dl (70-99) H 04/02/23 23:20 Calcium 9.5 mg/dl (8.6-10.3) 04/02/23 23:12 POC Ioniz Calcium Alla 1.23 mmol/l (1.12-1.32) 04/02/23 23:20 Magnesium 2.1 mg/dl (1.7-2.4) 04/02/23 23:12 Total Bilirubin 0.3 mg/dl (0.2-1.0) 04/02/23 23:12 AST 23 U/L (13-39) 04/02/23 23:12 ALT 21 U/L (7-52) 04/02/23 23:12 Alkaline Phosphatase 58 U/L (34-104) 04/02/23 23:12 Troponin I High Sens 8.4 pg/ml (0-20) 04/02/23 23:12 Total Protein 7.2 gm/dl (6.0-8.3) 04/02/23 23:12 Albumin 4.5 gm/dl (3.4-5.0) 04/02/23 23:12 Globulin 2.7 gm/dl (2.5-4.0) 04/02/23 23:12 Albumin/Globulin Ratio 1.7 (0.9-2) 04/02/23 23:12 SARS-CoV-2, RNA, NAAT NEGATIVE (NEGATIVE) 04/03/23 01:[address] 04/02/23 22:58 Exam(s): CT HEAD Without Contrast EXAM: CT Head Without Intravenous Contrast CLINICAL HISTORY: Reason for exam: neuro deficit, acute stroke suspected. TECHNIQUE: Axial computed tomography images of the head/brain without intravenous contrast. CTDI is 36.9 mGy and DLP is 624.41 mGy-cm. Automated exposure control was utilized for the study. A dose lowering technique was utilized adhering to the principles of ALARA. COMPARISON: None. FINDINGS: Brain: Global parenchymal volume loss with chronic microvascular ischemic changes. No hemorrhage. Ventricles: No ventriculomegaly. Bones/joints: Unremarkable. No acute fracture. Soft tissues: Unremarkable. Sinuses: Unremarkable as visualized. Mastoid air cells: Unremarkable as visualized. No mastoid effusion. IMPRESSION: 1. No intracranial hemorrhage or evidence of large territorial infarction. 2. Global parenchymal volume loss with chronic microvascular ischemic changes. Electronically signed by: Rudi Nieves MD 04/03/23 00:47 AM Head CTA 04/02/23 22:58 Exam(s): CTA HEAD With Contrast IV Amt: 112 ML OPTIRAY 320 EXAM: CT Angiography Head With Intravenous Contrast CLINICAL HISTORY: Reason for exam: neuro deficit, acute stroke suspected. TECHNIQUE: Axial computed tomographic angiography images of the head with intravenous contrast. CTDI is 14.34 mGy and DLP is 603.04 mGy-cm. Automated exposure control was utilized for the study. A dose lowering technique was utilized adhering to the principles of ALARA. MIP reconstructed images were created and reviewed. CONTRAST: Patient received 112 ML OPTIRAY 320 of IV contrast COMPARISON: None. FINDINGS: Right internal carotid artery: No acute findings. Intracranial segment is patent with no significant stenosis. No aneurysm. Right anterior cerebral artery: Unremarkable. No occlusion or significant stenosis. No aneurysm. Right middle cerebral artery: Unremarkable. No occlusion or significant stenosis. No aneurysm. Right posterior cerebral artery: Mild stenosis of the P2 segment of the right posterior cerebral artery. No aneurysm. Right vertebral artery: Unremarkable as visualized. Left internal carotid artery: No acute findings. Intracranial segment is patent with no significant stenosis. No aneurysm. Left anterior cerebral artery: Focal severe stenosis of the A2 segment of the left anterior cerebral artery. No aneurysm. Left middle cerebral artery: Unremarkable. No occlusion or significant stenosis. No aneurysm. Left posterior cerebral artery: Unremarkable. No occlusion or significant stenosis. No aneurysm. Left vertebral artery: Diminutive V4 segment of the left vertebral artery which predominantly terminates as the left posterior inferior cerebellar artery. Basilar artery: Unremarkable. No occlusion or significant stenosis. No aneurysm. IMPRESSION: 1. No large vessel occlusion. 2. Focal severe stenosis of the A2 segment of the left anterior cerebral artery. Electronically signed by: Rudi Nieves MD 04/03/23 00:51 AM Neck CTA 04/02/23 22:58 Exam(s): CTA NECK With Contrast IV Amt: 112 ML OPTIRAY 320 EXAM: CT Angiography Neck With Intravenous Contrast CLINICAL HISTORY: Reason for exam: neuro deficit, acute stroke suspected. TECHNIQUE: Routine carotid CT angiography protocol was performed with intravenous contrast. NASCET criteria using the distal ICAs for comparison were used for evaluation of stenoses. CTDI is 14.34 mGy and DLP is 603.04 mGy-cm. Automated exposure control was utilized for the study. A dose lowering technique was utilized adhering to the principles of ALARA. MIP reconstructed images were created and reviewed. CONTRAST: Patient received 112 ML OPTIRAY 320 of IV contrast COMPARISON: None. FINDINGS: VASCULATURE: Right common carotid artery: Unremarkable. No occlusion or significant stenosis. No dissection. Right internal carotid artery: Unremarkable. Extracranial segment is patent with no occlusion or significant stenosis. No dissection. Right external carotid artery: Unremarkable. No occlusion. Right vertebral artery: Right vertebral artery is dominant. No occlusion or significant stenosis. No dissection. Left common carotid artery: Unremarkable. No occlusion or significant stenosis. No dissection. Left internal carotid artery: Unremarkable. Extracranial segment is patent with no occlusion or significant stenosis. No dissection. Left external carotid artery: Unremarkable. No occlusion. Left vertebral artery: Unremarkable. No occlusion or significant stenosis. No dissection. NECK: Bones/joints: Anterior cervical discectomy and fusion at C4-C6. Degenerative changes in the cervical spine yields varying degrees of foraminal narrowing and spinal canal stenosis. Soft tissues: Unremarkable. Lung apices: Clear. CAROTID STENOSIS REFERENCE USING NASCET CRITERIA: % ICA stenosis = (1 - narrowest ICA diameter/diameter of distal cervical ICA) x 100. Mild - <50% stenosis. Moderate - 50-69% stenosis. Severe - 70-94% stenosis. Near occlusion - 95-99% stenosis. Occluded - 100% stenosis. IMPRESSION: No dissection, pseudoaneurysm, or hemodynamically significant stenosis of the carotid or vertebral arteries. Electronically signed by: Rudi Nieves MD 04/03/23 00:57 AM Brain MRI 04/03/23 01:24 Exam(s): MRI HEAD Without Contrast EXAM: MR Head Without Intravenous Contrast CLINICAL HISTORY: Reason for exam: abnormal speech, facial droop. TECHNIQUE: Magnetic resonance images of the head/brain without intravenous contrast in multiple planes. Moderate motion artifact. COMPARISON: Head CT done earlier. FINDINGS: Brain: No mass-effect or acute infarct. No acute or chronic hemorrhage. Mild atrophy, commensurate with age. Minimal chronic white matter disease. Ventricles: No hydrocephalus or midline shift. Bones/joints: No calvarial lesions. Soft tissues: No scalp hematoma. Sinuses: Clear. Mastoid air cells: No mastoid effusion. IMPRESSION: 1. Mild age-related findings. 2. No acute infarct, bleed, or acute intracranial abnormality. Electronically signed by: Anahi Rios M.D. 04/03/23 03:34 AM Code Status & VTE Plan Code Status Full code VTE Prophylaxis Plan VTE Prophylaxis will be ordered: Yes PG Care Time/CCT Total # of Minutes Spent Total Time Spent with Patient: Total time spent is greater than 50% in coordination of care (as documented) at patient's floor/unit and/or counseling patient: Coding Level of Care Code 51924 INT INP/OBS CARE 3/75MIN Diagnoses Brain TIA G45.9 GERD without esophagitis K21.9 BPH (benign prostatic hyperplasia) N40.0 Lower urinary tract symptom presence: unspecified whether lower urinary tract symptoms present Dyslipidemia E78.5 Hypertension I10 Hypertension type: primary hypertension Chronic back pain M54.9; G89.29 (3) BPH (benign prostatic hyperplasia) Lower urinary tract symptom presence: unspecified whether lower urinary tract symptoms present Qualified Code(s): N40.0 - Benign prostatic hyperplasia without lower urinary tract symptoms (5) Hypertension Hypertension type: primary hypertension Qualified Code(s): I10 - Essential (primary) hypertension
[2023-04-03] MEDS ORDERED: ONDANSETRON INJ 2 MG/ML 2 ML VIAL IV PRN (03:28)
[2023-04-03] MEDS ORDERED: PHARMACIST DISCHARGE MED REC CONSULT PRN (03:28)
[2023-04-03] MEDS ORDERED: NSS + 20MEQ KCL 20 MEQ/1,000 ML BAG IV SCH (03:28)
[2023-04-03] MEDS ORDERED: ACETAMINOPHEN 325 MG TAB PO PRN (03:28)
--- NOTE | 2023-04-03 03:35 | Magnetic Resonance Report ---
Exam(s): MRI HEAD Without Contrast EXAM: MR Head Without Intravenous Contrast CLINICAL HISTORY: Reason for exam: abnormal speech, facial droop. TECHNIQUE: Magnetic resonance images of the head/brain without intravenous contrast in multiple planes. Moderate motion artifact. COMPARISON: Head CT done earlier. FINDINGS: Brain: No mass-effect or acute infarct. No acute or chronic hemorrhage. Mild atrophy, commensurate with age. Minimal chronic white matter disease. Ventricles: No hydrocephalus or midline shift. Bones/joints: No calvarial lesions. Soft tissues: No scalp hematoma. Sinuses: Clear. Mastoid air cells: No mastoid effusion. IMPRESSION: 1. Mild age-related findings. 2. No acute infarct, bleed, or acute intracranial abnormality. Electronically signed by: Anahi Rios M.D. 04/03/23 03:34 AM
[2023-04-03 04:26] LABS: Basophils # (auto) 0.05 K/uL (0-0.2); Eosinophils # (auto) 0.15 K/uL (0-0.50); Eosinophils % (auto) 2.9 %; Hemoglobin 13.2 g/dl (14.0-18.0); Immature Granulocytes # (auto) 0.01 K/uL (0.01-0.20); Immature Granulocytes % (auto) 0.2 %; Lymphocytes # (auto) 1.88 K/uL (1.2-3.4); Lymphocytes % (auto) 36.2 %; Mean Corpuscular Hemoglobin 30.8 pg (25.0-34.0); Mean Corpuscular Hgb Conc 34.7 g/dL (32.0-36.0); Mean Corpuscular Volume 88.6 fL (80.0-100.0); Mean Platelet Volume 10.2 fL (9.4-12.4); Monocytes # (auto) 0.55 K/uL (0.11-0.59); Monocytes % (auto) 10.6 %; Neutrophils # (auto) 2.56 K/uL (1.40-6.50); Neutrophils % (auto) 49.1 %; Platelet Count 173 K/uL (130-400); RDW Coefficient of Variation 12.6 % (11.5-14.5); RDW Standard Deviation 40.8 fL (36.4-46.3); Red Blood Count 4.29 M/uL (4.70-6.10)
[2023-04-03 04:41] LABS: Alanine Aminotransferase 21 U/L (7-52); Albumin Globulin Ratio 1.8 (0.9-2); Albumin Level 4.2 gm/dl (3.4-5.0); Alkaline Phosphatase 50 U/L (34-104); Anion Gap 7 (3-11); Aspartate Aminotransferase 20 U/L (13-39); BUN Creatinine Ratio 17.8 (10-20); Bilirubin,Total 0.4 mg/dl (0.2-1.0); Blood Urea Nitrogen 18 mg/dl (6-23); Calcium 9.1 mg/dl (8.6-10.3); Carbon Dioxide 26 mmol/L (21-32); Chloride 106 mmol/L (98-107); Chol HDL Ratio 4.2 (0-5); Cholesterol 133 mg/dl (0-200); Creatinine Clr Calc Pharmacy 74.7 ml/min; Est GFR (African American) 85.1 ml/min; Est GFR (Non-African American) 73.4 ml/min; Globulin 2.3 gm/dl (2.5-4.0); Glucose 122 mg/dl (70-99(Fasting)); HDL Cholesterol 32 mg/dl; Potassium 3.7 mmol/L (3.5-5.1); Sodium 139 mmol/L (136-145); Total Protein 6.5 gm/dl (6.0-8.3); Triglycerides 431 mg/dl (0-150)
[2023-04-03 08:08] LABS: Estimated Average Glucose 117 mg/dl; Hemoglobin A1C 5.7 % (4.5-5.6)
[2023-04-03] MEDS ORDERED: CLOPIDOGREL BISULFATE 75 MG TAB PO SCH (09:00)
[2023-04-03] MEDS ORDERED: ROSUVASTATIN CALCIUM 20 MG TAB PO SCH (09:00)
[2023-04-03] MEDS ORDERED: ASPIRIN 81 MG ECTAB PO SCH (09:00)
[2023-04-03] MEDS ORDERED: ACYCLOVIR 400 MG TAB PO SCH (09:00)
[2023-04-03] MEDS ORDERED: STROKE PATIENT DISCHARGE STA (15:48)
--- NOTE | 2023-04-03 15:49 | Discharge Summary ---
Date of Service April 03, 2023 Admission HPI Per Admitting Provider The patient is a 73-year-old male with a past medical history including GERD without esophagitis, BPH, dyslipidemia, cervical disc surgery about 20 years ago, lumbar spine surgery about 3 years ago, hypertension, and arthralgia of multiple sites. The patient was on the phone with a friend, who noted his speech was slurred around 930 this evening. The friend called his brother, and his brother then talked to the patient's , who went in to check on the patient and noted that the patient patient left facial droop and difficulty with speech. The patient was initially resistant to come to the emergency departm ent, however was ultimately convinced when EMS arrived. Upon arrival to emergency department, patient symptoms had already resolved. 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 HEENT--PERRL, EOMI, mucous membranes and oropharynx normal. Neck--supple. No JVD. No bruits. Thyroid normal, trachea midline, no adenopathy. Heart--normal S1 and S2. No murmurs, rubs or gallops. Lungs--clear bilaterally, no respiratory distress, no accessory muscle use. Abdomen--normal bowel sounds and soft. Nontender. Nondistended, no hernias or masses, no organomegaly. Extremities--no cyanosis or clubbing. No edema. There are good distal pulses b/l. Dermatologic--normal skin turgor, normal color, no abnormal lymph nodes, no rash. Neurologic--cranial nerves II through XII grossly intact. Rheumatologic--normal range of motion. Psychiatric--normal affect. Principal Diagnosis TIA Discharge Exam Constitutional WD/WN, vitals as above Eyes PERRL, conjunctivae normal, anicteric sclerae Respiratory normal respiratory effort, lungs clear to auscultation Cardiovascular RRR, no murmur, no edema Gastrointestinal (Abdomen) normal bowel sounds, soft, nontender, no hepatosplenomegaly Psychiatric A+Ox3, euthymic affect Discharge Data Allergies Allergy/AdvReac Type Severity Reaction Status Date / Time oxycodone Allergy Intermediate Rash Verified 04/02/23 23:25 tramadol Allergy Intermediate swelling Verified 04/02/23 23:25 terbinafine AdvReac Intermediate Diarrhea Verified 04/02/23 23:25 Consultations 04/03/23 01:08 ED Decision to Admit Stat Ordered Studies 04/02/23 22:58 CT angio head w con Stat CT angio neck with con Stat CT head/brain wo con Stat 04/03/23 01:24 MRI Brain [MR brain wo con] Stat Hospital Course (1) Brain TIA: - ~30 minutes of stroke like symptoms prior to coming into ED. -CBC, CMP, trop negative. A1c 5.7, lipid profile significant for trilgycerides 431, LDL 63, HDL 32. -Head CT w/o acute changes. Head CTA w/ focal severe stenosis A2 segment L anterior cerebral artery. CTA neck unremarkable. -Brain MRI w/o any acute changes. -EKG w/ sinus rhythm -Echo still pending. -Most likely TIA microvascular in nature in MCA territory given symptoms. Less likely related to above CTA head findings. No A. fib given sinus rhythm while inpatient on monitor. -Will treat as TIA, DAPT w/ ASA 81mg and Plavix 75mg daily for 30 days. Told patient to take only Plavix daily after 30 days. -Counseled patient and on good lifestyle modifications having significant impact on stroke risk going forward. Total Time Total Time Spent Total Time Spent (In Minutes): <30 Discharge Plan Discharge Items Patient Disposition: Home - Self-Care Reason For Visit: STROKE-LIKE SYMPTOMS Discharge Diagnosis: TIA Activity: Per Instructions section Non-emergency contact: Primary Care Provider Call non-emergency contact if: your symptoms worsen, your pain is worsening and your temperature is above 101 Follow-up/Referrals: Yanet Campbell MD [Primary Care Provider] - 04/08/23 11:00 am (Your appointment is with Heather FLANNERY) Diet: Regular Addtl Attending Provider Instructions: A discharge summary will be sent to your primary care physician to ensure continuity of care. You came into the hospital for stroke like symptoms and concern for possible stroke. In the hospital you had a number of tests performed. Your blood work was unremarkable, the scans of your head were normal for the most part. The CT of your head looking at blood vessels found some narrowing of one of your arteries called the anterior cerebral artery, however the area of the brain supplied by this blood supply would not correlate with your symptoms. Your symptoms may be due to some smaller vessel narrowing elsewhere. What we can do to help combat this is to keep taking antiplatelet agents such as aspirin. We will also be adding an additional antiplatelet medication called Plavix (also known ge nerically as clopidogrel) to take daily. After taking both Aspirin and Plavix for 30 days please stop taking aspiring and keep taking Plavix. Please remember to focus on diet and exercise modifications like we discussed. Follow-up: * You should be seen by your primary physician within the next week. Medications: Your medication list has been reviewed and reconciled upon discharge to ensure accuracy and continuity of care. An updated list of all your medications is included with your hospital discharge paperwork. Please review this list closely, and make note of any changes. * We will be sending Plavix 75mg daily for you to take with your Aspirin 81mg for 30 days, thereafter stop taking Aspirin and keep taking the Plavix daily. Take your medications as instructed; do not skip a dose of your medicines. Make sure all of your doctors know every medicine you are taking (including ufnw-yfm-rbepoxc medicines, vitamins, and supplements). let your primary care provider know before taking any new medicines because some of these may interact with your current medications, or may make your symptoms worse. CONTACT YOUR PRIMARY CARE PROVIDER if you experience any of the following: * Fevers or shaking chills * Shortness of breath not relieved by inhalers, fainting * Sudden abdominal distension not relieved by catheterization. * Difficulty following your treatment plan, or difficulty taking medications CALL 911 OR GO TO THE EMERGENCY DEPARTMENT if you experience any of the follo wing: * Sudden, severe abdominal pain or nausea/vomiting * Severe chest pain, or chest pain that radiates (moves) to your jaw or arm * Sudden, severe shortness of breath or difficulty breathing It was was our pleasure taking care of you here at [facility] . Thank you for allowing us to participate in your care. Pending Studies at Discharge: Yes (echocardiogram) Stand-Alone Forms: My [facility], Smoking Cessation Medications and DC Order Prescriptions: New clopidogrel 75 mg Tablet 75 mg PO QAM 30 Days Qty: 30 0RF aspirin 81 mg Tablet,Delayed Release (Dr/Ec) 81 mg PO QAM Qty: 0 0RF Continued acyclovir 400 mg tablet 400 mg PO BID Qty: 180 3RF amlodipine-olmesartan 5-20 mg tablet 0.5 tab PO DAILY Qty: 45 3RF rosuvastatin 40 mg tablet 40 mg PO DAILY Qty: 90 3RF Hold Instructions: while on paxlovid amitriptyline 50 mg tablet 25 mg PO QPM Qty: 45 3RF ascorbic acid (vitamin C) [Vitamin C] 1,000 mg Tablet 3,000 mg PO QPM Excedrin Migraine 250-250-65 mg Tablet 1 tab PO 6XWK pantoprazole 40 mg tablet,delayed release (DR/EC) 40 mg PO DAILY Rx Instructions: TAKE 1 TABLET BY MOUTH DAILY Discharge Orders: Discharge Order (Routine); Ordered 04/03/23 Ordered By: Jak Gomez Admission Data Admit Date/Time: 04/03/23 01:46 Attending Provider: Quinn Degroot Admit Provider: Ciaran Mike Primary Care Provider: Yanet Campbell Other Providers: Ciaran Mike Other Interventions: Discharge Summary Assessment (RN) Last Done: 04/03/23 15:26 Supervising Physician Co-Signing Physician Notes I personally examined the patient and verified all holliday points of history and exam, discussed case, and agree with decision making with Dr Gomez Feeling better and would like to go home. Extensive discussion on med management, diet, exercise for vascular disease Vitals noted, in general he is awake and alert pleasant no distress. HEENT normocephalic atraumatic mucous membranes moist. Breathing unlabored no accessory muscle use good effort. Skin shows no rashes no pallor or icterus no focal neurodeficits. CBC, BMP, A1c, lipids noted TIAlikely intracranial atherosclerosisalready on aspirin. Add Plavixdual antiplatelets for about 30 days and then drop aspirin and remain on Plavix alone. Risks appear to be hypertensionoutpatient follow-up, hyperlipide miacontinue high intensity statin (will defer to PCP as far as specific management of triglycerides. Secondary risk reduction with goal of 20 to 30 minutes of light cardiovascular exercise daily and Mediterranean diet. Chronic back paindiscussed trial of OMT. Safe/stable for home, otherwise as above Resident Activity Tracking Resident Involvement: Resident Care Provided Care Provided: Adult Hospital Medicine
--- NOTE | 2023-04-03 16:48 | Billing Data ---
Date of Service April 03, 2023 Coding Level of Care Code 64949 IN/OBS DISCH 30 MIN/LESS
--- NOTE | 2023-04-03 16:51 | XCELERA ---
[id number] [id number]
--- NOTE | 2023-04-05 05:18 | Electrocardiogram Report ---
Test Reason : Blood Pressure : / mmHG Vent. Rate : 067 BPM Atrial Rate : 067 BPM P-R Int : 222 ms QRS Dur : 160 ms QT Int : 420 ms P-R-T Axes : 071 -68 043 degrees QTc Int : 443 ms Sinus rhythm with sinus arrhythmia with 1st degree A-V block Right bundle branch block Left anterior fascicular block Bifascicular block Minimal voltage criteria for LVH, may be normal variant Abnormal ECG When compared with ECG of 21-APR-2020 21:50, Premature ventricular complexes are no longer Present T wave amplitude has decreased in Anterolateral leads Confirmed by Lobito Amaya ([id number]) on 04/05/2023 5:17:36 AM Referred By: REFERRED SELF Confirmed By:Lobito Amaya
--- NOTE | 2023-04-05 13:46 | Pharmacy Report ---
Pharmacist Stroke Counseling - Date of Service April 05, 2023 - Scope: Pharmacy has been consulted to provide medication discharge counseling for this patient admitted with [ischemic stroke] [hemorrhagic stroke] [transient ischemic attack] as per the Pharmacist Discharge Counseling for Stroke Patients Protocol . - Medications on Discharge: Home Medications Medication Instructions Recorded Confirmed ascorbic acid (vitamin C) 1,000 mg 3,000 mg PO QPM 10/24/18 04/04/23 tablet (Vitamin C) [id number]-vfnkummbdcyze-fttievlv 250 1 tab PO 6XWK 04/02/23 04/04/23 mg-250 mg-65 mg tablet (Excedrin Migraine) pantoprazole 40 mg tablet,delayed 40 mg PO DAILY 04/02/23 04/04/23 release New Rx's Medication Instructions Recorded acyclovir 400 mg tablet 400 mg PO BID #180 tabs 04/25/21 amlodipine 5 mg-olmesartan 20 mg 0.5 tab PO DAILY #45 tabs 09/27/22 tablet rosuvastatin 40 mg tablet 40 mg PO DAILY #90 tabs 12/10/22 amitriptyline 50 mg tablet 25 mg PO QPM #45 tabs 12/31/22 aspirin 81 mg tablet,delayed 81 mg PO QAM #0 tabs 04/03/23 release clopidogrel 75 mg tablet 75 mg PO QAM 30 days #30 tabs 04/03/23 - Action: The above medications, specifically ones for stroke treatment/prophylaxis, have been reviewed in detail with the patient and/or patient manufacturer's representative(s) prior to discharge. This includes indication, common adverse reactions, drug interactions, and medication administration. Medication counseling has been employed using the teach-back method to ensure understanding. - Outcome: The patient and/or patient manufacturer's representative(s) have demonstrated understanding of the medications. Additional comments: Spoke with Mr. Kessler briefly. He reports he was able to get the plavix and is not having any issues at this time. He is taking with the aspirin for 30 days and then will continue plavix. He had no further questions. Thank you for allowing pharmacy to be involved in the care of this patient. Please call [phone] with any additional questions
== END 2023-04-03 16:45 | disposition home or self-care (01) | DRG 69 ==
LOC: ED 22:50 → 1E 04-03 01:46 → SUATTDRO 04-03 01:46 → 1E 04-03 03:07